=== PATIENT | female | born 1985 | race Caucasian/White ===

== ENCOUNTER 2020-01-22 04:30 | Inpatient (IN) | payer MEDICAID ==
[~2020-01-22] VITALS: Ht 157.5 cm; Wt 97.5 kg
[2020-01-22] MEDS ORDERED: LR 1,000 ML IV SCH (05:19)
[2020-01-22] MEDS ORDERED: hydrALAZINE HCL 20 MG/ML VIAL IVP ONE ×2 (05:30→09:15)
[2020-01-22] MEDS ORDERED: TERBUTALINE SULFATE 1 MG/ML VIAL SUBCUT ONE (05:30)
[2020-01-22] MEDS ORDERED: AMPICILLIN SODIUM 2 GM in NS 100 ML IV ONE (05:30)
[2020-01-22 05:45] VITALS: BP_SYST 176
[2020-01-22 05:58] LABS: BASOPHILS # (AUTO) 0.1 K/uL (0.0-0.2); BASOPHILS % (AUTO) 0.8 % (0.0-2.0); EOSINOPHILS # (AUTO) 0.1 K/uL (0.0-0.4); EOSINOPHILS % (AUTO) 1.3 % (0.0-4.0); HEMATOCRIT 35.8 % (36-48); LYMPHOCYTES # (AUTO) 1.8 K/uL (1.0-5.5); LYMPHOCYTES % (AUTO) 18.3 % (20.5-51.5); MEAN CORPUSCULAR HEMOGLOBIN 28 pg (27-31); MEAN CORPUSCULAR HGB CONC 33 % (32-36); MEAN CORPUSCULAR VOLUME 84 fL (79.0-98.0); MONOCYTES # (AUTO) 0.8 K/uL (0.0-1.0); MONOCYTES % (AUTO) 7.6 % (1.7-9.3); NEUTROPHILS # (AUTO) 7.2 K/uL (1.8-7.7); PLATELET COUNT (AUTO) 327 K/uL (130-430); RED BLOOD CELL COUNT(AUTO) 4.25 MIL/uL (4.2-6.2); RED CELL DISTRIBUTION WIDTH 13.3 % (9.0-15.0)
[2020-01-22] MEDS ORDERED: hydrALAZINE HCL 20 MG/ML VIAL ONE (06:15)
[2020-01-22 06:18] LABS: ALBUMIN 2.3 g/dL (3.4-4.8); CREATININE 0.42 mg/dL (0.55-1.30); POTASSIUM 3.7 mmol/L (3.5-5.1); TOTAL BILIRUBIN 0.3 mg/dL (0.0-1.0)
[2020-01-22] MEDS ORDERED: MEPERIDINE HCL/PF 50 MG/ML AMP IVP PRN (06:30)
[2020-01-22] MEDS ORDERED: MEPERIDINE HCL/PF 100 MG/ML AMP ONE (06:48)
[2020-01-22] MEDS ORDERED: AMPICILLIN SODIUM 2 GM VIAL ONE (06:49)
[2020-01-22] MEDS ORDERED: OXYTOCIN/0.9 % SODIUM CHLORIDE 1,000 ML IV ONE ×2 (07:47→08:08)
[2020-01-22] MEDS ORDERED: METHYLERGONOVINE MALEATE 0.2 MG/ML AMP ONE (07:47)
[2020-01-22 08:15] LABS: BILIRUBIN,URINE NEGATIVE (NEGATIVE); BLOOD, URINE NEGATIVE (NEGATIVE); CLARITY/URINE CLEAR (CLEAR); COLOR,URINE YELLOW (YELLOW); GLUCOSE,URINE NEGATIVE (NEGATIVE); KETONES,URINE NEGATIVE (NEGATIVE); LEUKOCYTE ESTERASE ,URINE NEGATIVE (NEGATIVE); NITRITE, URINE NEGATIVE (NEGATIVE); PH,URINE 6.5 (5.0-8.0); PROTEIN URINE NEGATIVE (NEGATIVE); UROBILINOGEN,URINE 0.2 (0.2-1.0)
[2020-01-22] MEDS ORDERED: DIPH-TET-PERTUS Vaccine 0.5 ML VIAL (ADACEL) I.M. PRN (08:15)
[2020-01-22] MEDS ORDERED: OXYCODONE/ACETAMINOPHEN 5-325 TABLET PO PRN (08:15)
[2020-01-22] MEDS ORDERED: WITCH HAZEL LEAF 1 MED.PAD MED.PAD TP PRN (08:15)
[2020-01-22] MEDS ORDERED: LANOLIN 7 GM OINT. TP PRN (08:15)
[2020-01-22] MEDS ORDERED: MEASLES,MUMPS&RUBELLA VACC/PF 12500 UNIT/0.5 ML VIAL SUBQ PRN (08:15)
[2020-01-22] MEDS ORDERED: SENNOSIDES/DOCUSATE SODIUM 1 TAB TABLET(SENOKOT-S) PO PRN (08:15)
[2020-01-22] MEDS ORDERED: RHO(D) IMMUNE GLOBULIN/MALTOSE 1500 UNITS/1.3 ML (WINHRO) IM PRN (08:15)
[2020-01-22] MEDS ORDERED: DERMOPLAST SPRAY TP PRN (08:15)
[2020-01-22] MEDS ORDERED: ANUSOL 1 EA SUPP.RECT (PREPARATION H) RC PRN (08:15)
[2020-01-22] MEDS: OXYCODONE/ACETAMINOPHEN 5-325 TABLET PO PRN ×4 (08:23→21:04)
[2020-01-22] MEDS: DOCUSATE SODIUM 100 MG CAPSULE PO PRN ×2 (08:24→21:06)
[2020-01-22 08:36] LABS: BARBITURATE, URINE NEGATIVE (NEG <=200); BENZODIAZEPINE, URINE NEGATIVE (NEG <=150); CANNABINOID, URINE NEGATIVE (NEG <=50); COCAINE, URINE NEGATIVE (NEG <=150); METHAMPHETAMINES SCREEN,URINE NEGATIVE (NEG <=500); OPIATE, URINE NEGATIVE (NEG <=100); PHENCYCLIDINE SCREEN,URINE NEGATIVE (NEG <=25); UR TRICYCLIC ANTIDEPRESSANTS NEGATIVE (NEG <=300); URINE AMPHETAMINE NEGATIVE (NEG <=500); URINE METHADONE NEGATIVE (NEG <=200); URINE OXYCODONE SCREEN NEGATIVE (NEG <=100); URINE PROPOXYPHENE SCREEN NEGATIVE (NEG <=300)
[2020-01-22] MEDS ORDERED: hydrALAZINE HCL 10 MG TABLET PO ONE (09:30)
[2020-01-22] MEDS ORDERED: AMPICILLIN SODIUM 1 GM in NS 50 ML IV SCH (09:30)
[2020-01-22] MEDS: IBUPROFEN 600 MG TABLET PO SCH ×2 (12:25→18:10)
[2020-01-22] MEDS: hydrALAZINE HCL 25 MG TABLET PO PRN ×2 (16:26→21:07)
[2020-01-22] MEDS: LORazepam 1 MG TABLET PO SCH (18:09)
[2020-01-22] MEDS ORDERED: TEMAZEPAM 15 MG CAPSULE PO PRN (21:00)
[2020-01-23] MEDS: IBUPROFEN 600 MG TABLET PO SCH ×3 (01:23→11:50)
[2020-01-23] MEDS: LORazepam 1 MG TABLET PO SCH ×4 (01:26→17:09)
[2020-01-23] MEDS: hydrALAZINE HCL 25 MG TABLET PO PRN (03:05)
[2020-01-23] MEDS: OXYCODONE/ACETAMINOPHEN 5-325 TABLET PO PRN (07:01)
[2020-01-23 07:06] LABS: BASOPHILS % (AUTO) 0.3 % (0.0-2.0); EOSINOPHILS # (AUTO) 0.3 K/uL (0.0-0.4); EOSINOPHILS % (AUTO) 2.5 % (0.0-4.0); HEMATOCRIT 32.9 % (36-48); HEMOGLOBIN 10.9 g/dL (12.0-16.0); LYMPHOCYTES # (AUTO) 2.1 K/uL (1.0-5.5); LYMPHOCYTES % (AUTO) 19.3 % (20.5-51.5); MEAN CORPUSCULAR HEMOGLOBIN 28 pg (27-31); MEAN CORPUSCULAR HGB CONC 33 % (32-36); MEAN CORPUSCULAR VOLUME 84 fL (79.0-98.0); MONOCYTES # (AUTO) 0.7 K/uL (0.0-1.0); MONOCYTES % (AUTO) 6.6 % (1.7-9.3); NEUTROPHILS # (AUTO) 7.9 K/uL (1.8-7.7); NEUTROPHILS % (AUTO) 71.3 % (40.0-70.0); PLATELET COUNT (AUTO) 310 K/uL (130-430); RED CELL DISTRIBUTION WIDTH 13.3 % (9.0-15.0)
[2020-01-23] MEDS ORDERED: LABETALOL HCL 100 MG TABLET PO ONE ×2 (08:30→12:00)
[2020-01-23] MEDS ORDERED: LABETALOL HCL 100 MG TABLET ONE (12:00)
[2020-01-23] MEDS: DOCUSATE SODIUM 100 MG CAPSULE PO PRN (17:26)
[2020-01-23] MEDS ORDERED: LABETALOL HCL 100 MG TABLET PO SCH (21:00)
[2020-01-25 00:07] LABS: RUBELLA AB, IgM <20.0 AU/mL (0.0-19.9)
== END 2020-01-23 17:50 | disposition left against medical advice (07) | DRG 560 ==
LOC: SPU 04:30 → OBSVTOIN 04:30 → SPU 11:57
PROVIDERS: ADMIT Specialist; ATTEND Specialist
PROC: 10E0XZZ Delivery of Products of Conception, External Approach (ICD-10-PCS; principal; 2020-01-22)
DX: O99.824 Streptococcus B carrier state complicating childbirth (principal); R71.0 Precipitous drop in hematocrit; Z37.0 Single live birth; O16.5 Unspecified maternal hypertension, complicating the puerperium; Z3A.39 39 weeks gestation of pregnancy; Z53.29 Procedure and treatment not carried out because of patient's decision for other reasons
CPT/HCPCS: 36415; 80053; 80307; 81003; 85025; 85384-TC; 86592; 86762; 86886; 86900; 86901; 87536; J0290; J0360; J2175; J2210; J2590; J7120